=== PATIENT | female | born 2000 | race Caucasian/White ===

== ENCOUNTER 2025-01-06 11:05 | Outpatient (CLI) | payer OTHER, SELFPAY ==
--- NOTE | ~2025-01-06 | XR_ITS ---
EXAM/PROCEDURE: XR chest 2V - 01/06/2025 11:30 CDT HISTORY: 24 years old Female with acute cough, wheezing, x 2 wks TECHNIQUE: Two view(s) of the chest. COMPARISON: None available. FINDINGS: LUNGS/ PLEURA: No focal consolidation. Mild perihilar bronchial wall thickening. HEART/ MEDIASTINUM: Heart appears normal in size. BONES: No acute osseous abnormality. OTHER: Visualized upper abdomen is unremarkable. IMPRESSION: No focal consolidation. Mild perihilar bronchial wall thickening, findings suggestive of respiratory bronchiolitis. Reviewed, dictated and finalized at location A. IMPRESSION: No focal consolidation. Mild perihilar bronchial wall thickening, findings sugg estive of respiratory bronchiolitis.
== END 2025-01-06 11:06 | disposition home or self-care (01) ==
PROVIDERS: PCP Nurse Practitioner Family; Visit Provider Nurse Practitioner Family
DX: J98.09 Other diseases of bronchus, not elsewhere classified (principal)
CPT/HCPCS: 71046